=== PATIENT | female | born 1970 | race African-American/Black ===

== ENCOUNTER 2019-08-30 11:48 | Outpatient (CLI) | payer BC ==
--- NOTE | 2019-08-30 13:08 | MMO ---
Bilateral MAMMO Bilat Screen [facility]. CLINICAL HISTORY: Patient is 49 years old and is seen for screening. The patient has no family history of breast cancer. The patient has no personal history of cancer. VIEWS: The views performed were: bilateral craniocaudal with tomosynthesis and bilateral mediolateral oblique with tomosynthesis. This study has been interpreted with the assistance of computer-aided detection. MAMMOGRAM FINDINGS: There are scattered fibroglandular densities. There is an equal density, oval mass measuring 8 millimeters with circumscribed margins seen in the inner region of the right breast. In the left breast, there are no suspicious masses, calcifications or areas of architectural distortion. IMPRESSION: MASS IN THE RIGHT BREAST REQUIRES ADDITIONAL EVALUATION. AN ULTRASOUND EXAM IS RECOMMENDED. THE RESULTS OF THIS EXAM WERE SENT TO THE PATIENT. ACR BI-RADS Category 0 - Incomplete: Need additional imaging evaluation. [facility] will notify the patient of the need for additional imaging services. MAMMOGRAPHY NOTE: 1. A negative mammogram report should not delay a biopsy if a dominant of clinically suspicious mass is present. 2. Approximately 10% to 15% of breast cancers are not detected by mammography. 3. Adenosis and dense breasts may obscure an underlying neoplasm. Reported by: EVARISTO RUIZ MD Electonically Signed: [id number]
== END 2019-08-30 11:49 | disposition home or self-care (01) ==
LOC: BICMAMMO 11:48
PROVIDERS: ATTEND Family Medicine
DX: Z12.31 Encounter for screening mammogram for malignant neoplasm of breast (principal); N63.10 Unspecified lump in the right breast, unspecified quadrant
CPT/HCPCS: 77063; 77067

== ENCOUNTER 2019-09-11 08:54 | Outpatient (CLI) | payer BC ==
--- NOTE | 2019-09-11 10:55 | ULT ---
RIGHT BREAST ULTRASOUND: Date: 09/11/2019 HISTORY: Patient returns for right breast ultrasound to evaluate a mass seen on prior screening mammography harjeet palomino 08/30/2019. FINDINGS: The right breast is evaluated with attention to the 2 o'clock position 4 cm from the nipple, revealin g a slightly lobulated, slightly hypoechoic solid mass, measuring 0.4 x 0.6 x 0.8 cm. This mass corre sponds to the mass on mammography. Ultrasound-guided biopsy is recommended. IMPRESSION: 0.4 x 0.6 x 0.8 cm diameter hypoechoic solid mass right breast 2 o'clock 4 cm from the nipple, corres ponding to the abnormal mammographic finding. BI-RADS Category 4 - Suspicious finding. Ultrasound-guided biopsy is recommended. The patient has been scheduled. Dr. Dwyer's office was notified of this at the time of this repor t. POS: OFF
== END 2019-09-11 08:55 | disposition home or self-care (01) ==
LOC: BICULT 08:54
PROVIDERS: ATTEND Family Medicine
DX: N63.10 Unspecified lump in the right breast, unspecified quadrant (principal)

== ENCOUNTER → 2019-09-18 | Day surgery (SDC) | payer BC ==
--- NOTE | 2019-09-18 15:17 | ULT ---
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 PREPROCEDURE DIGANOSIS: Right breast 2-3 o'clock mass. ANESTHESIA: 11 mm of buffered 1% Lidocaine. SPECIMEN: Five 14-gauge core biopsy specimens of right breast mass. TECHNIQUE: Prior to the procedure, the risks and benefits of a right breast ultrasound-guided biopsy were explai magi to the patient and she consented fully to the procedure. The right breast mass was again identified with ultrasound of the right breast. The right breast was prepped and draped in the usual sterile fashion. Lidocaine was used to anesthetize the skin and soft tissues surrounding the right breast mass. Appro priate from medial was performed. A small skin incision was made allowing for passage of the 14-gaug e core biopsy device. The 14-gauge core biopsy device was placed 5 separate times through the small skin fred and 5 separat e core biopsy specimens were obtained. These were placed in formalin. After completion of the biops y, a biopsy clip was placed immediately adjacent to the mass. A postprocedure mammogram was performed showing biopsy clip in the inner aspect of the right breast. The right breast mass was difficult to visualize without 3D tomosynthesis images. IMPRESSION: Status post ultrasound-guided right breast mass biopsy. POS: WENCESLAO
--- NOTE | 2019-09-19 14:40 | MMO ---
Right Breast MAMMO Unilat Diag DDI RT, US Breast Bx US Guided. CLINICAL HISTORY: Patient is 49 years old and is seen for diagnostic exam. The patient has no family history of breast cancer. The patient has no personal history of cancer. The patient has a history of right Ultrasound Guided Core Biopsy in September,. VIEWS: The views performed were: right craniocaudal and right mediolateral. FILMS COMPARED: The present examination has been compared to prior imaging studies performed at [facility] on 08/30/2019 and 09/11/2019. This study has been interpreted with the assistance of computer-aided detection. MAMMOGRAM FINDINGS: There are scattered fibroglandular densities. There is a biopsy clip seen in the right breast at 3 o'clock. IMPRESSION: BIOPSY CLIP IN THE RIGHT BREAST IS CONFIRMED UTILIZING POST PROCEDURE MAMMOGRAM. THE RESULTS OF THIS EXAM WERE SENT TO THE PATIENT. MAMMOGRAPHY NOTE: 1. A negative mammogram report should not delay a biopsy if a dominant of clinically suspicious mass is present. 2. Approximately 10% to 15% of breast cancers are not detected by mammography. 3. Adenosis and dense breasts may obscure an underlying neoplasm. Reported by: JR HURLEY MD Electonically Signed: [id number]
== END ==
LOC: BICULT 09:04
PROVIDERS: ATTEND Family Medicine
PROC: 0H9T3ZX Drainage of Right Breast, Percutaneous Approach, Diagnostic (ICD-10-PCS; principal; 2019-09-18)
DX: D24.1 Benign neoplasm of right breast (principal)
CPT/HCPCS: 19083; 88305

== ENCOUNTER 2020-10-15 07:58 | Outpatient (CLI) | payer BC | END 2020-10-15 07:59 | disposition home or self-care (01) | LOC: BICMAMMO 07:58 | PROVIDERS: ATTEND Family Medicine | DX: Z12.31 Encounter for screening mammogram for malignant neoplasm of breast (principal) | CPT/HCPCS: 77063; 77067 ==

== ENCOUNTER 2023-02-25 09:51 | Outpatient (CLI) | payer BC | END 2023-02-25 09:52 | disposition home or self-care (01) | LOC: BICMAMMO 09:51 | PROVIDERS: ATTEND Family Medicine | DX: Z12.31 Encounter for screening mammogram for malignant neoplasm of breast (principal) | CPT/HCPCS: 77063; 77067 ==